=== PATIENT | female | born 1980 | race African-American/Black ===

== ENCOUNTER 2017-09-24 13:20 | Outpatient (CLI) | payer OTHER ==
[~2017-09-24 13:20] MED LIST: DRAMAMINE LESS25 MG PO
== END 2017-09-24 14:30 | disposition home or self-care (01) ==
LOC: MRI 13:20
DX: H81.13 Benign paroxysmal vertigo, bilateral (principal); R42 Dizziness and giddiness
CPT/HCPCS: 70551

== ENCOUNTER 2019-01-13 12:52 | Outpatient (CLI) | payer OTHER | END 2019-01-13 13:16 | disposition home or self-care (01) | LOC: SONOGRAMA 12:52 | DX: E04.1 Nontoxic single thyroid nodule (principal) ==

== ENCOUNTER 2020-08-23 12:30 | Outpatient (CLI) | payer OTHER | END 2020-08-23 13:50 | disposition home or self-care (01) | LOC: NST 12:30 | PROVIDERS: ATTEND Obstetrics & Gynecology Maternal & Fetal Medicine | DX: Z34.83 Encounter for supervision of other normal pregnancy, third trimester (principal) ==

== ENCOUNTER 2020-08-30 09:00 | Outpatient (CLI) | payer OTHER | END 2020-08-30 09:30 | disposition home or self-care (01) | LOC: NST 09:00 | PROVIDERS: ATTEND Obstetrics & Gynecology Maternal & Fetal Medicine | DX: Z34.83 Encounter for supervision of other normal pregnancy, third trimester (principal) ==

== ENCOUNTER 2020-09-02 10:50 | Outpatient (CLI) | payer OTHER | END 2020-09-02 12:25 | disposition home or self-care (01) | LOC: NST 10:50 | PROVIDERS: ATTEND Obstetrics & Gynecology | DX: Z34.83 Encounter for supervision of other normal pregnancy, third trimester (principal) ==

== ENCOUNTER 2020-09-05 05:49 | Inpatient (IN) | payer OTHER ==
[~2020-09-05] VITALS: Ht 144.8 cm; Wt 51.7 kg
[2020-09-05] MEDS ORDERED: SYNTHROID88 MCG PO (06:57)
[2020-09-05] MEDS ORDERED: PRENATAL TABLE1 EAC1 PO (06:57)
== END 2020-09-07 13:28 | disposition home or self-care (01) | DRG 807 ==
LOC: LDR 05:49 → OB/GYN 16:39
PROVIDERS: ADMIT Obstetrics & Gynecology; ATTEND Obstetrics & Gynecology
PROC: 10E0XZZ Delivery of Products of Conception, External Approach (ICD-10-PCS; principal; 2020-09-05)
PROC: 0W8NXZZ Division of Female Perineum, External Approach (ICD-10-PCS; 2020-09-05)
PROC: 3E033VJ Introduction of Other Hormone into Peripheral Vein, Percutaneous Approach (ICD-10-PCS; 2020-09-05)
PROC: 4A1HXFZ Monitoring of Products of Conception, Cardiac Rhythm, External Approach (ICD-10-PCS; 2020-09-05)
DX: O80 Encounter for full-term uncomplicated delivery (principal); Z37.0 Single live birth; Z3A.38 38 weeks gestation of pregnancy; Z20.828 Contact with and (suspected) exposure to other viral communicable diseases

== ENCOUNTER → 2022-12-17 | Outpatient (CLI) | payer OTHER ==
[~2022-12-17] MED LIST changes: +PRENATAL TABLE1 EAC1 PO; +SYNTHROID88 MCG PO
== END | disposition home or self-care (01) ==
LOC: SONOGRAMA 13:27
PROVIDERS: ATTEND Internal Medicine Endocrinology, Diabetes & Metabolism
DX: E04.1 Nontoxic single thyroid nodule (principal)

== ENCOUNTER 2023-01-05 10:14 | Emergency (ER) | payer OTHER ==
[~2023-01-05] VITALS: Ht 157.5 cm; Wt 46.7 kg
== END 2023-01-05 13:35 | disposition home or self-care (01) ==
LOC: ER 10:14
DX: J02.9 Acute pharyngitis, unspecified (principal)

== ENCOUNTER 2025-04-06 12:20 | Emergency (ER) | payer OTHER ==
[~2025-04-06] VITALS: Ht 149.9 cm; Wt 45.8 kg
[~2025-04-06 12:20] MED LIST changes: +SYNTHROID50 MCG
[2025-04-06 12:54] VITALS: BP 150/90; O2SAT 100
[2025-04-06] MEDS ORDERED: DEXAMETHASONE SODIUM PHOSPHATE 4 MG/ML VIAL IM STA (13:10)
[2025-04-06] MEDS ORDERED: ENALAPRILAT DIHYDRATE 1.25 MG/ML VIAL IV STA (13:10)
[2025-04-06] MEDS ORDERED: ACETAMINOPHEN 500 MG GEL..CAP PO STA (13:11)
[2025-04-06] MEDS ORDERED: ACETAMINOPHEN 500 MG GEL..CAP PO ONE (13:16)
[2025-04-06] MEDS ORDERED: ENALAPRILAT DIHYDRATE 1.25 MG/ML VIAL IV ONE (13:16)
[2025-04-06] MEDS ORDERED: DEXAMETHASONE SODIUM PHOSPHATE 4 MG/ML VIAL ONE (13:16)
[2025-04-06 13:45] LABS: BASO % 0.8 % (0.1-1.2); EOS # 0.04 (0.04-0.54); EOS % 0.6 % (0.7-7.0); LYMPH # 1.87 (1.18-3.74); LYMPH % 29.5 % (19.3-53.1); MEAN PLATELET VOLUME 9.50 fl (9.4-12.4); MONO # 0.51 (0.24-0.82); MONO % 8.1 % (4.7-12.5); NEUT # 3.85 (1.56-6.13); NEUT % 60.8 % (34.0-71.1); RED CELL DISTRIBUTION WIDTH 12.6 % (11.6-14.4)
[2025-04-06 14:19] LABS: BUN CREA RATIO 18.0 (7.0-25.0); CREATININE SERUM 0.66 mg/dL (0.55-1.02); GFR 96.85; GLUCOSE FASTING 83.0 mg/dL (65-100); OSMOLALITY SERUM 280.0 MOSM/KG (275-295)
[2025-04-06] MEDS ORDERED: LOSARTAN POTASS50 MG PO (15:25)
== END 2025-04-06 15:33 | disposition home or self-care (01) ==
LOC: ER 12:20
PROVIDERS: General Practice
DX: I10 Essential (primary) hypertension (principal); R51.9 Headache, unspecified